=== PATIENT | female | born 1955 | race Caucasian/White ===

== ENCOUNTER 2016-03-30 10:40 | Emergency (ER) | payer BC ==
[2016-03-30 11:51] VITALS: BP 123/72
--- NOTE | 2016-03-30 13:42 | ED ---
Casey Pickett Adam, scribed for Cici Gibbs MD on 03/30/16 at 1130 . Neck Pain - HPI Summary HPI Summary: Pt is a 60 year old female presenting with pain in the right side of her neck. She states that the pain set on 2 days ago while the pt was packing up her bag in [place]. It was localized around the right side of her neck and her right collar bone and it radiated up to the right side of her head. Today the pain around the collar bone has been intermittent but the right-sided neck pain has grown sharp and more severe. She has taken 3 Advil today. The painful area is not tender to palpation. Pt reports potential sources of regular strain to her neck including tennis, dog-walking, and working for long hours at a computer. She states that she has arthritis in her neck. She also reports a PMHx of HLD and rising BP. Positive EtOH use, no tobacco use. - History of Current Complaint Chief Complaint: EDHeadache Stated Complaint: CHEST/HEAD/NECK PAIN Hx Obtained From: Patient Mechanism Of Injury: No Known Trauma Timing: Constant, Lasting Days Onset/Duration: Sudden Onset, Started days ago, Still Present Severity Initially: Moderate Severity Currently: Moderate Pain Intensity: 4 Pain Scale Used: 0-10 Numeric Location: Discrete At: - Right side of neck, Radiates To: - Right side of head and chest Aggravating Factors: Movement Alleviating Factors: OTC Meds - Ibuprofen Associated Signs & Symptoms: Positive: Negative - Allergies/Home Medications Allergies/Adverse Reactions: Allergies Allergy/AdvReac Type Severity Reaction Status Date / Time No Known Allergies Allergy Verified 03/30/16 11:13 PMH/Surg Hx/FS Hx/Imm Hx Cardiovascular History: Reports: Hx Hypercholesterolemia Infectious Disease History: No Infectious Disease History: Denies: Traveled Outside the [place] in Last 30 Days - Family History Known Family History: Positive: Cardiac Disease - AL, Other - HLD, Alzheimer's, breast CA, prostate CA, skin CA - Social History Occupation: Employed Full-time Lives: With Family - Alcohol Use: Weekly Hx Tobacco Use: No Smoking Status (MU): Never Smoked Tobacco Review of Systems Negative: Fever Positive: Chest Pain - Right side Positive: Arthralgia - Right shoulder, Other - Right-sided neck pain Positive: Headache - Right side All Other Systems Reviewed And Are Negative: Yes Physical Exam Triage Information Reviewed: Yes Vital Signs On Initial Exam: Initial Vitals Temp Pulse Resp BP Pulse Ox 97.7 F 70 16 123/76 100 03/30/16 11:13 03/30/16 11:13 03/30/16 11:13 03/30/16 11:13 03/30/16 11:13 Vital Signs Reviewed: Yes Appearance: Positive: Well-Appearing, No Pain Distress Skin: Positive: Warm, Skin Color Reflects Adequate Perfusion, Dry Eyes: Positive: EOMI, NIMA ENT: Positive: Pharynx normal, TMs normal Neck: Positive: Supple, Nontender, Other: - Negative carotid bruits Respiratory/Lung Sounds: Positive: Clear to Auscultation, Breath Sounds Present. Negative: Rales, Rhonchi, Wheezes Cardiovascular: Positive: RRR. Negative: Murmur, Rub Abdomen Description: Positive: Nontender, Soft. Negative: Distended, Guarding Bowel Sounds: Positive: Present Musculoskeletal: Positive: Strength/ROM Intact, Other - Muslce spasms over trapezius and rhomboid muscles in the back that are very tender to palpation.. Negative: Edema Left, Edema Right Neurological: Positive: Sensory/Motor Intact, Alert, Oriented to Person Place, Time, CN Intact II-III Psychiatric: Positive: Affect/Mood Appropriate Diagnostics - Vital Signs Vital Signs Temp Pulse Resp BP Pulse Ox 03/30/16 11:13 97.7 F 70 16 123/76 100 - Laboratory Lab Statement: Any lab studies that have been ordered have been reviewed, and results considered in the medical decision making process. Neck Course/Dx - Course Course Of Treatment: very pleasant 60 yo female with exquisitely tender trigger points (muscle spasms) of left side of neck and chest and posterior shoulder. primarily here to make sure something else wasnt' going on neuro exam normal didn't want meds - Diagnoses Provider Diagnoses: Neck spasms Discharge - Discharge Plan Condition: Stable Disposition: HOME Patient Education Materials: Muscle Spasm (ED), Neck Pain (ED) Referrals: Erin Costello MD [Primary Care Provider] - Additional Instructions: Follow up with Dr. Costello. The documentation as recorded by the Casey mehta Adam accurately reflects the service I personally performed and the decisions made by me, Cici Gibbs MD.
== END 2016-03-30 12:30 | disposition home or self-care (01) ==
LOC: ED 10:40
DX: M62.838 Other muscle spasm (principal); R07.9 Chest pain, unspecified; M25.511 Pain in right shoulder; R51 Headache
CPT/HCPCS: 99281